=== PATIENT | female | born 1995 ===

== ENCOUNTER 2021-11-05 16:34 | Inpatient (IN) | payer MEDICAID ==
[2021-11-05] MEDS ORDERED: Water For Irrigation,Sterile 1,000 ML Container IRR PRN (17:39)
[2021-11-05] MEDS ORDERED: Carboprost Tromethamine 250 MCG/1 ML Amp IM PRN (17:39)
[2021-11-05] MEDS ORDERED: Lidocaine 1% 50 ML MDV INJECT PRN (17:39)
[2021-11-05] MEDS ORDERED: Terbutaline 1 MG/ML SDV SUBCUT PRN (17:39)
[2021-11-05] MEDS ORDERED: Sodium Chloride 0.9% 10 ML Syringe FLUSH PRN (17:39)
[2021-11-05] MEDS ORDERED: Sodium Chloride 0.9% 2.5 ML Syringe FLUSH PRN (17:39)
[2021-11-05] MEDS ORDERED: Ondansetron 4 MG/2 ML SDV IVPUSH PRN (17:39)
[2021-11-05] MEDS ORDERED: Sodium Chloride 0.9% 20 ML SDV IV PRN (17:39)
[2021-11-05] MEDS ORDERED: Methylergonovine 0.2 MG/1 ML Amp IM PRN (17:39)
[2021-11-05] MEDS ORDERED: Misoprostol 200 MCG Tab PO PRN (17:39)
[2021-11-05] MEDS ORDERED: Tranexamic Acid 1,000 MG in Sodium Chloride 0.9% 100 ML IV PRN (17:39)
[2021-11-05] MEDS ORDERED: Butorphanol 1 MG/ML SDV IVPUSH PRN (17:39)
[2021-11-05] MEDS ORDERED: Oxytocin/0.9 % Sodium Chloride 30 UNIT/500 ML BAG IV SCH ×2 (17:45)
[2021-11-05] MEDS: Lactated Ringers 1,000 ML IV SCH ×3 (17:57→21:49)
[2021-11-05] MEDS ORDERED: Phenylephrine HCl In 0.9% NaCl 1 MG/10 ML Vial ONE (19:30)
[2021-11-05] MEDS ORDERED: Lidocaine 2% 5 ML SDV ONE (19:30)
[2021-11-05] MEDS ORDERED: Ropivacaine/PF 400 MG/200 ML PCA ONE (19:30)
[2021-11-05] MEDS ORDERED: ePHEDrine 50 MG/ML SDV IVPUSH PRN ×2 (19:47)
[2021-11-05] MEDS ORDERED: Ropivacaine HCl/PF 400 MG in Premix Bag 1 BAG EPIDUR SCH (20:00)
[2021-11-05] MEDS ORDERED: Phenylephrine HCl In 0.9% NaCl 1 MG/10 ML Vial IVPUSH SCH (20:00)
[2021-11-05] MEDS ORDERED: Docusate Sodium 100 MG Cap PO PRN (22:57)
[2021-11-05] MEDS ORDERED: Lanolin 100% Cream 7 GM Tube TOP PRN (22:57)
[2021-11-05] MEDS ORDERED: Bisacodyl 10 MG Supp RECTAL PRN (22:57)
[2021-11-05] MEDS ORDERED: Benzocaine/Menthol 20%-0.5% Spray 78 GM Cannister TOP PRN (22:57)
[2021-11-05] MEDS ORDERED: Acetaminophen 500 MG Tab PO PRN (22:57)
[2021-11-05] MEDS ORDERED: Ibuprofen 400 MG Tab PO PRN (22:57)
[2021-11-05] MEDS: Witch Hazel Medicated Pads 40/Jar TOP PRN (23:33)
[2021-11-06] MEDS: Acetaminophen 500 MG Tab PO PRN ×3 (01:44→19:33)
[2021-11-06] MEDS: Ibuprofen 800 MG Tab PO PRN ×3 (01:45→19:34)
[2021-11-07] MEDS: Acetaminophen 500 MG Tab PO PRN (03:47)
[2021-11-07] MEDS: Witch Hazel Medicated Pads 40/Jar TOP PRN (03:48)
[2021-11-07] MEDS: Ibuprofen 800 MG Tab PO PRN (03:48)
== END 2021-11-07 13:15 | disposition home or self-care (01) | DRG 807 ==
LOC: MW.OBCHECK 16:34 → MW.OB 16:36 → MW.OBCHECK 16:40 → MW.OB 16:41 → OBSVTOIN 22:57 → MW.OB 11-06 02:00
PROVIDERS: ADMIT Obstetrics & Gynecology Obstetrics; ATTEND Obstetrics & Gynecology Obstetrics
PROC: 10E0XZZ Delivery of Products of Conception, External Approach (ICD-10-PCS; principal; 2021-11-05)
PROC: 3E0R3BZ Introduction of Anesthetic Agent into Spinal Canal, Percutaneous Approach (ICD-10-PCS; 2021-11-05)
PROC: 00HU33Z Insertion of Infusion Device into Spinal Canal, Percutaneous Approach (ICD-10-PCS; 2021-11-05)
DX: O42.92 Full-term premature rupture of membranes, unspecified as to length of time between rupture and onset of labor (principal); Z37.0 Single live birth; Z3A.39 39 weeks gestation of pregnancy; O99.02 Anemia complicating childbirth; D64.89 Other specified anemias; Z20.822 Contact with and (suspected) exposure to COVID-19
CPT/HCPCS: 36415; 51702; 59025; 59409; 84112; 85014; 85018; 85027; 86592; 86850; 86900; 86901; A9270-GY; J2590; J2795; J7120; U0002